=== PATIENT | male | born 1990 | race Caucasian/White ===

== ENCOUNTER 2017-10-07 05:29 | Emergency (ER) | payer OTHER ==
[~2017-10-07] VITALS: Ht 182.9 cm; Wt 92.0 kg
[2017-10-07 05:30] VITALS: BP 137/79; PULSE 52; RESP 16; TEMP 97.2; O2SAT 98
[2017-10-07] MEDS ORDERED: NEOM1SOL7 RIGHT EAR (05:42)
[2017-10-07] MEDS ORDERED: NEOMYCIN/POLYMYXIN/HYDROCORT OTIC SUSP 10 ML BTL RIGHT EAR ONE (05:45)
--- NOTE | 2017-10-07 05:47 | PD ---
HPI Chief Complaint: ENT Complaint Time Seen by Provider: 05:35 Travel History International Travel<30 days: No Contact w/Intl Traveler<30days: No Traveled to known affect area: No History of Present Illness HPI This is a 27-year-old male who presents for evaluation of right ear pain and decreased hearing in the right ear. Reports that he has had decreased hearing in his right ear for 2 days. He reports that he went swimming yesterday and symptoms worsen. He has been irrigating his right ear out and since then he has developed pain in his right ear. The pain is an aching pain which is constant, aggravated by manipulation of the right ear with no relieving factors. He denies any drainage from the ear. Denies any cough, congestion, sore throat, fevers or chills. He has no other complaints. [facility] Past Medical History Medical History: Denies Significant Hx Past Surgical History Surgical History: No Previous Surgery Social History Alcohol Use: No Tobacco Use: No Substance Use: No Allergies-Medications (Allergen,Severity, Reaction): Coded Allergies: No Known Allergies (Unverified , 10/07/17) Reported Meds & Prescriptions Reported Meds & Active Scripts Active Ssdssvvv-Bnevgizum-RA Otic Drops 3.5-10,000-1 Mg-Units-% Soln 4 Drop RIGHT EAR QID 7 Days Review of Systems General / Constitutional: No: Fever, Chills HENT: Positive: Earache, Other (Positive for decreased hearing right ear.), No : Sore Throat, Rhinitis, Congestion Cardiovascular: No: Chest Pain or Discomfort Respiratory: No: Cough Physical Exam Narrative GENERAL: Well-developed well-nourished male no acute distress SKIN: Warm and dry. HEAD: Atraumatic. Normocephalic. EYES: Pupils equal and round. No scleral icterus. No injection or drainage. ENT: No nasal bleeding or discharge. Mucous membranes pink and moist. The right external ear canal is edematous and there is pain with otic manipulation. There is a deep cerumen impaction present as well. Left tympanic membrane by contrast appears normal with a small amount of cerumen debris. NECK: Trachea midline. No JVD. No lymphadenopathy. CARDIOVASCULAR: Regular rate and rhythm. No murmur appreciated. RESPIRATORY: No accessory muscle use. Clear to auscultation. Breath sounds equal bilaterally. Data Data Last Documented VS Vital Signs Date Time Temp Pulse Resp B/P (MAP) Pulse Ox O2 Delivery O2 Flow Rate FiO2 10/07/17 05:30 97.2 52 16 137/79 (98) 98 Orders Orders Yhctdvlz-Vdpouqts-Eh Otic Susp (Cortispo (10/07/17 05:45) Ed Discharge Order (10/07/17 05:41) MDM Medical Decision Making Medical Screen Exam Complete: Yes Emergency Medical Condition: Yes Medical Record Reviewed: Yes Differential Diagnosis Otitis externa, cerumen impaction, tympanic membrane perforation, otitis media Narrative Course Examination is consistent with what was initially a cerumen impaction, now has developed edema of the external ear canal raza consistent with otitis externa likely secondary to ear irrigation and swimming in the pool. Plan is to treat him with Cortisporin otic solution. Once the infectious process has resolved, recommended that he follow-up with his primary care physician in 1 week to have his ear irrigated. He is stable for discharge. Diagnosis Primary Impression: Right otitis externa Additional Impression: Cerumen impaction Additional Instructions: Use the medication as prescribed. Avoid getting water in right ear canal. Follow-up in 1 week with primary care physician for ear irrigation. Return for any emergent medical conditions. Med/Other Pt SpecificInfo: Prescription(s) given Scripts Kltdvcqw-Jfjdkynyu-GW Otic Drops (Fjwlbfae-Knzkqvgte-NL Otic Drops) 3.5-10,000- 1 Mg-Units-% Soln 4 DROP RIGHT EAR QID for Infection for 7 Days, BOTTLE 0 Refills Prov: Rebecca Hayes MD 10/07/17 Disposition: 01 DISCHARGE HOME Condition: Stable Garret Stern Oct 07, 2017 05:47
== END 2017-10-07 06:15 | disposition home or self-care (01) ==
LOC: NEPD 05:29
DX: H60.91 Unspecified otitis externa, right ear (principal); H61.21 Impacted cerumen, right ear
CPT/HCPCS: 99283